=== PATIENT | female | born 1960 | race Caucasian/White ===

== ENCOUNTER 2019-06-30 07:19 | Emergency (ER) | payer BC ==
[2019-06-30 07:37] VITALS: BP 123/77
--- NOTE | 2019-06-30 08:05 | UC ---
Skin Complaint HPI - HPI Summary HPI Summary: rash left buttocks x 4 days the area is raised and painful , pain is 6 out of 10 , worse with touch and movements better with standing and rest no change in soap , detergent, no new food or drinks + fatigue , no fever, no chills - History of Current Complaint Chief Complaint: UCSkin Time Seen by Provider: 06/30/19 07:51 Stated Complaint: SKIN Hx Obtained From: Patient Onset/Duration: Gradual Onset, Lasting Days - 4, Still Present Timing: Constant Onset Severity: Moderate Current Severity: Moderate Pain Intensity: 4 Location: Discrete - left buttocks Character: Swelling, Pain, Redness, Raised, Painful Aggravating Factor(s): Touch Alleviating Factor(s): Nothing Associated Signs & Symptoms: Positive: Weakness, Tenderness. Negative: Nausea, Vomiting - Allergy/Home Medications Allergies/Adverse Reactions: Allergies Allergy/AdvReac Type Severity Reaction Status Date / Time acetaminophen [From Tylenol] Allergy Hives Verified 06/30/19 07:28 amoxicillin Allergy Hives Verified 06/30/19 07:28 METHERGIN Allergy Bleeding Uncoded 06/30/19 07:28 Home Medications: Home Medications Escitalopram * [Lexapro 10 mg (NF)] 15 mg PO DAILY 06/30/19 [History Confirmed 06/30/19] Hydroxychloroquine TAB* [Plaquenil TAB*] 400 mg PO DAILY 06/30/19 [History Confirmed 06/30/19] Levothyroxine TAB* [Synthroid TAB*] 112 mcg PO DAILY 06/30/19 [History Confirmed 06/30/19] PMH/Surg Hx/FS Hx/Imm Hx - Additional Past Medical History Additional PMH: SLE thyroid Cancer Endocrine History: Thyroid Disease - Surgical History Surgical History: Yes Surgery Procedure, Year, and Place: thyroid CA thyroid removed in 1997; two ademomas removed to her rt breast same time; d&C proc years ago; DX w endometriosis 1993 laporoscopy procedure done. APPENDECTOMY. T & A. trigger finger. LEFT MIDDLE TRIGGER FINGER - Social History Alcohol Use: Occasionally Substance Use Type: None Smoking Status (MU): Never Smoked Tobacco Review of Systems All Other Systems Reviewed And Are Negative: Yes Constitutional: Positive: Fatigue Skin: Positive: Rash Eyes: Positive: Negative ENT: Positive: Negative Is Patient Immunocompromised?: No Physical Exam Triage Information Reviewed: Yes Appearance: Well-Appearing, No Pain Distress, Well-Nourished Vital Signs: Initial Vital Signs Temp 98.6 F 06/30/19 07:31 Pulse 78 06/30/19 07:31 Resp 17 06/30/19 07:31 BP 123/77 06/30/19 07:31 Pulse Ox 98 06/30/19 07:31 Vital Signs Reviewed: Yes Eye Exam: Normal Eyes: Positive: Conjunctiva Clear ENT: Positive: Normal ENT inspection, Hearing grossly normal, Pharynx normal Neck: Positive: Supple, Nontender, No Lymphadenopathy Respiratory: Positive: Chest non-tender, Lungs clear, Normal breath sounds Cardiovascular: Positive: RRR, No Murmur, Pulses Normal Skin: Positive: Rashes - visicular rash left buttocks, + swelling, erythema, tender to touch Course/Dx - Diagnoses Provider Diagnosis: Shingles Discharge ED - Sign-Out/Discharge Documenting (check all that apply): Patient Departure All imaging exams completed and their final reports reviewed: No Studies - Discharge Plan Condition: Stable Disposition: HOME Prescriptions: ValACYclovir (*) [Valtrex 1 GM(*)] 1 gm PO TID #21 tab Patient Education Materials: Shingles (ED) Referrals: Amanda Cagle MD [Primary Care Provider] - If Needed - Billing Disposition and Condition Condition: STABLE Disposition: Home
== END 2019-06-30 08:04 | disposition home or self-care (01) ==
LOC: UCCORT 07:19
DX: B02.9 Zoster without complications (principal); M32.9 Systemic lupus erythematosus, unspecified; Z85.850 Personal history of malignant neoplasm of thyroid; E07.9 Disorder of thyroid, unspecified; E89.0 Postprocedural hypothyroidism
CPT/HCPCS: 99212; G0463